=== PATIENT | female | born 2000 | race Two or more races ===

== ENCOUNTER 2024-02-05 00:03 | Emergency (ER) | payer MEDICAID, OTHER ==
[~2024-02-05] VITALS: Ht 175.3 cm; Wt 105.0 kg
[2024-02-05 00:57] LABS: Urine Bacteria None Seen /hpf (None Seen)
[2024-02-05 00:59] VITALS: BP 143/68; PULSE 89; RESP 17; TEMP 97.9; O2SAT 98
[2024-02-05] MEDS: KETOROLAC TROMETH 30 MG/ML 1ML VIAL IM ONE (00:59)
[2024-02-05 01:01] LABS: Basophils # (auto) 0.1 10 ^3/uL (0-0.2); Basophils % (auto) 0.3 % (0.0-2.0); Eosinophils # (auto) 0.1 10 ^3/uL (0-0.8)
[2024-02-05 01:05] LABS: Eosinophils % (auto) 0.5 % (0.0-7.0); Hemoglobin 18.4 g/dL (12.2-16.2); Lymphocytes # (auto) 4.1 10 ^3/uL (0.4-5.4); Lymphocytes % (auto) 19.5 % (10.0-50.0); Mean Corpuscular Hemoglobin 29.5 pg (28.0-32.0); Mean Corpuscular Hgb Conc. 34.1 g/dL (32.0-36.0); Mean Corpuscular Volume 86.8 fL (80.0-100.0); Monocytes # (auto) 0.8 10 ^3/uL (0-1.3); Neutrophils % (auto) 75.7 % (37.0-80.0); Nucleated Red Blood Cells % 0.2 %; Red Blood Cells 6.23 10^6/uL (4.0-5.20); Red Cell Distribution Width 14.1 % (11.8-14.3); White Blood Cell 21.1 10^3/uL (4.4-10.8)
[2024-02-05 01:11] LABS: Urine Blood 2+ /uL (Negative); Urine Clarity Turbid (Clear); Urine Color Yellow (Yellow); Urine Hyaline Cast MOD /lpf (0 - 2); Urine Mucus FEW (None Seen); Urine Protein, UAD 2+ (Negative); Urine Specific Gravity 1.026 (1.001-1.035); Urine Urobilinogen 3 mg/dL (Negative); Urine WBC 31 /hpf (0 - 5); Urine pH 5.5 (5.0-9.0)
[2024-02-05 01:17] LABS: Alanine Aminotransferase 17 U/L (7-40); Alkaline Phosphatase 76 U/L (46-116); Anion Gap 9 (5-15); Aspartate Aminotransferase < 8 U/L (13-40); BUN/Creatinine Ratio 9.3 (10.0-20.0); Bilirubin, Total 0.4 mg/dL (0.2-1.0); Blood Urea Nitrogen 10 mg/dL (9-23); Calcium 10.6 mg/dL (8.7-10.4); Carbon Dioxide 19 mmol/L (20-30); Chloride 109 mmol/L (98-107); Glucose 120 mg/dL (74-106); Lipase 46 U/L (12-53); Potassium 4.1 mmol/L (3.5-5.1); Sodium 137 mmol/L (136-145); Total Protein 8.1 g/dL (5.7-8.2)
[2024-02-05] MEDS ORDERED: MET500T PO (02:21)
[2024-02-05] MEDS ORDERED: CIPR-173 PO (02:21)
[2024-02-05] MEDS ORDERED: ZOFR4T PO (02:21)
[2024-02-05] MEDS: ONDANSETRON ODT 4 MG TAB PO ONE (02:40)
== END 2024-02-05 02:40 | disposition home or self-care (01) ==
LOC: ER 00:03 → EDBD 00:03 → ER 02:40
DX: K52.9 Noninfective gastroenteritis and colitis, unspecified (principal); N39.0 Urinary tract infection, site not specified; F41.9 Anxiety disorder, unspecified; K21.9 Gastro-esophageal reflux disease without esophagitis
CPT/HCPCS: 36415; 74176; 80053; 81001; 83605; 83690; 85025; 96372; 99285; J1885; Q0162